=== PATIENT | male | born 1960 | race Caucasian/White ===

== ENCOUNTER 2023-05-13 06:11 | Day surgery (SDC) | payer BC, SELFPAY ==
[2023-05-12 08:50] LABS: Hemoglobin 13.9 g/dL (13.0-18.0); Mean Corp Hgb Conc. 34.8 g/dL (33.0-37.0); Mean Corpuscular Hgb 29.6 pg (27.0-31.0); Mean Corpuscular Volume 85.3 fL (80.0-94.0); Platelet Count 248 10^3/uL (130-400); Red Blood Cell Count 4.69 10^6/uL (4.70-6.10); Red Cell Dist. Width 13.2 % (11.5-14.5)
[2023-05-12 09:09] LABS: INR 1.07; PT 13.8 Sec (11.4-14.6)
[2023-05-12 09:14] LABS: ALT (SGPT) 28 U/L (0-50); AST (SGOT) 24 U/L (17-59); Albumin 4.4 g/dl (3.5-5.0); Alkaline Phosphatase 80 U/L (38-126); Blood Urea Nitrogen 20 mg/dl (9-20); Calcium 10.4 mg/dl (8.4-10.2); Carbon Dioxide 29 mmol/L (22-30); Chloride 103 mmol/L (98-107); Glucose 99 mg/dl (70-99); Potassium 4.2 mmol/L (3.5-5.1); Sodium 142 mmol/L (135-145); Total Bilirubin 0.7 mg/dl (0.2-1.3); eGFR > 60.00
[2023-05-12 14:00] VITALS: BMI 24.9
[2023-05-13] VITALS (9 sets, daily range): BP systolic 145–174; BP diastolic 70–116; BMI 24.9
[2023-05-13] MEDS: TYLENOL 1000 MG PO (06:35)
[2023-05-13] MEDS: HEPARIN 5000 UNITS SC (06:35)
[2023-05-13] MEDS: NORMOSOL-R 1000 IV (06:35)
[2023-05-13] MEDS: NEURONTIN 300 MG PO (06:35)
[2023-05-13 08:25] LABS: Turbo PTH 127.9 pg/ml (13.6-85.8)
[2023-05-13 08:34] LABS: Glucose - Point of Care 104 mg/dl (70-99)
[2023-05-13 09:55] LABS: Turbo PTH 64.9 pg/ml (13.6-85.8)
[2023-05-13 10:18] LABS: Glucose - Point of Care 116 mg/dl (70-99)
--- NOTE | 2023-05-13 10:50 | OR.RPT ---
Operative Report
Operative Report
Date of Operation: May 13, 2023
Preoperative Diagnosis: �Parathyroid hyperparathyroidism - E210
Postoperative Diagnosis: Same
Surgeon: Apolinar Berrios M.D.
Operation: Minimally Invasive Right Superior and Inferior Parathyroidectomy - 29840
Anesthesia: GET
Estimated Blood Loss: 3 cc
Drains: None
Specimen: Right superior and inferior neck nodules, rule out parathyroid adenomas
Complications: �None
Procedure:
The patient was taken to the operating room and placed in the usual supine position. After adequate general endotracheal anesthesia was established, the patient's neck was extended, prepped, and draped in the typical sterile fashion. A 4 cm
transcervical incision was made two fingerbreadths above the sternal notch. The skin incision was made with the #15 blade, and this was taken through the skin into the subcutaneous tissue. The underlying platysma muscle was divided, and subplatysmal
flaps were created superiorly to the thyroid cartilage and inferiorly to the sternal notch. Strap muscles were identified and at the midline.
Attention was turned to the patient's right side of the neck. The right thyroid lobe was mobilized medially. During this process, the right recurrent laryngeal nerve was identified and preserved throughout the surgery. The right upper and �lower
neck nodules were identified and noted to be enlarged, excised, and sent to the pathology department, which showed hypercellular parathyroid glands. �The intraoperative PTH levels normalized.
After obtaining adequate hemostasis, the strap muscles were reapproximated with #3-0 Vicryl in a running fashion. The platysma muscle was reapproximated with #3-0 Vicryl in an interrupted fashion, and the skin was approximated with #4-0 Monocryl in
a running subcuticular fashion. The Steri-Strips and sterile dressings were placed. The patient tolerated the procedure well. The final instrument, needle, and sponge counts were correct. The patient was extubated and transferred to the PACU.
[2023-05-13] MEDS: DILAUDID 0.25 MG IV (10:53)
== END 2023-05-13 12:25 | disposition home or self-care (01) ==
LOC: SDS 06:11
PROVIDERS: ATTENDING PHYSICIAN Surgery; FAMILY PHYSICIAN Physician Assistant Medical
DX: E21.0 Primary hyperparathyroidism (principal)
CPT/HCPCS: 60500; 88305; 88332; 36415; 80053; 82962; 83970; 85027; 85610; 85730; 88331; 93005